=== PATIENT | female | born 1980 | race African-American/Black ===

== ENCOUNTER 2024-04-01 16:11 | Outpatient (REF) | payer SELFPAY ==
[2024-04-01 17:25] LABS: MANUAL DIFF FLAG NO
[2024-04-01 17:28] LABS: Basophils Percent Auto 0.6 % (0-2); Eosinophils Absolute Auto 0.1 X10*3/uL (0.0-0.4); Eosinophils Percent Auto 0.9 % (0-4); Hematocrit 33.9 % (37.0-47.0); Hemoglobin 11.5 g/dl (12.0-16.0); Imm Gran Abs Auto 0.01 X10*3/uL (0.00-0.03); Imm Gran Pct Auto 0.1 % (0.0-0.4); Lymphocytes Absolute Auto 1.7 X10*3/uL (1.2-4.9); Mean Corpuscular HGB Conc 33.9 g/dl (31.0-35.0); Mean Corpuscular Hemoglobin 28.5 pg (27.0-33.0); Mean Corpuscular Volume 83.9 fL (80.0-98.0); Mean Platelet Volume 10.5 fL (9.4-12.3); Monocytes Absolute Auto 0.5 X10*3/uL (0.1-1.2); Monocytes Percent Auto 7.8 % (2-11); Neutrophils Absolute Auto 4.3 x10*3/uL (2.0-8.3); Neutrophils Percent Auto 64.6 % (45-73); Platelet Count 286 X10*3/uL (160-400); Red Blood Count 4.04 X10*6/uL (4.20-5.50); Red Cell Distribution Width 12.9 % (11.0-16.0); White Blood Count 6.7 X10*3/uL (4.8-10.8)
[2024-04-01 17:59] LABS: Rheumatoid Factor < 13.0 IU/mL (<15.0)
[2024-04-01 18:14] LABS: Erythrocyte Sedimentation Rate 22 MM/HR (0-20)
[2024-04-02 08:33] LABS: Syphilis Screen Nonreactive (Nonreactive)
[2024-04-03 18:53] LABS: Herpes Simplex Type 1 IgG <0.90 index; Herpes Simplex Type 2 IgG <0.90 index
[2024-04-06 03:14] LABS: Angiotensin Converting Enzyme 32.9 U/L (9-67)
[2024-04-06 17:13] LABS: Treponema pallidum Ab FTA ABS Nonreactive (Nonreactive)
[2024-04-07 09:13] LABS: Anti Nuclear Antibody Screen POSITIVE (NEGATIVE)
[2024-04-08 07:58] LABS: Lyme Blot 0.95 index
[2024-04-10 10:54] LABS: Lyme Abs Screen EQUIVOCAL
== END 2024-04-01 16:12 | disposition home or self-care (01) ==
LOC: HO.HHCL 16:11
PROVIDERS: Visit Provider Optometrist
DX: H20.00 Unspecified acute and subacute iridocyclitis (principal)
CPT/HCPCS: 36415; 82164; 85025; 85652; 86038; 86039; 86431; 86617; 86618; 86695; 86696; 86780

== ENCOUNTER 2024-04-07 13:48 | Outpatient (REF) | payer SELFPAY ==
[2024-04-09 09:54] LABS: RPR Rapid Plasma Reagin NON-REACTIVE (NON-REACTIVE)
[2024-04-09 14:18] LABS: Anti DNA DS Antibody <1 IU/mL
[2024-04-10 05:03] LABS: TS Negative Control Passed; TS Panel A 0; TS Panel B 0; TS Positive Control Passed; TSpotTB Negative (Negative)
== END 2024-04-07 13:49 | disposition home or self-care (01) ==
LOC: HO.HHCL 13:48
PROVIDERS: Visit Provider Optometrist
DX: H20.00 Unspecified acute and subacute iridocyclitis (principal)
CPT/HCPCS: 36415; 86225; 86481; 86592